=== PATIENT | male | born 1995 ===

== ENCOUNTER → 2018-01-24 | Outpatient (CLI) | payer BC ==
[2018-01-26 11:08] LABS: HIV SCREEN 4TH GENERATION WRFX Non Reactive (Non Reactive)
[2018-01-27 01:14] LABS: HBSAG SCREEN Negative (Negative); HEP A AB, IGM Negative (Negative); HEP B CORE AB, IGM Negative (Negative); HEP C VIRUS AB <0.1 (0.0-0.9)
== END ==
LOC: LAB 18:55 → LAB SHORT 18:55
PROVIDERS: Nurse Practitioner
DX: N34.1 Nonspecific urethritis (principal)
CPT/HCPCS: 80074; 86592; 87086; 87389

== ENCOUNTER → 2018-01-25 | Outpatient (CLI) | payer BC ==
[2018-01-26 22:12] LABS: CHLAMYDIA TRACHOMATIS, NAA Negative (Negative); NEISSERIA GONORRHOEAE, NAA Negative (Negative)
== END ==
LOC: LAB 11:12 → LAB SHORT 11:12
PROVIDERS: Nurse Practitioner
DX: N34.1 Nonspecific urethritis (principal)
CPT/HCPCS: 87491; 87591

== ENCOUNTER → 2024-01-07 | Outpatient (CLI) | payer SELFPAY ==
[2024-01-07 14:13] LABS: CHOL/HDL RATIO 2.4; Cholesterol 207 mg/dL (50-200); HDL Cholesterol 88 mg/dL (>39); LDL/HDL RATIO 1.3; Low Density Lipoprotein Chol 111 mg/dL (0-110); Triglycerides 40 mg/dL (30-140); Very Low Density Lipoprot Chol 8 mg/dL (6-28)
[2024-01-09 11:32] LABS: APTIMA MEDIA TYPE Urine; C. TRACHOMATIS BY TMA Negative (Negative); N. GONORRHOEAE BY TMA Negative (Negative); SPECIMEN SOURCE Urine
== END ==
LOC: LAB SHORT 13:30 → LAB 13:30
PROVIDERS: Hospitalist
DX: Z13.220 Encounter for screening for lipoid disorders (principal); Z11.3 Encounter for screening for infections with a predominantly sexual mode of transmission
CPT/HCPCS: 80061; 86592; 87491; 87591